=== PATIENT | male | born 1990 | race Caucasian/White ===

== ENCOUNTER 2024-09-16 13:37 | Outpatient (CLI) | payer MEDICARE, MEDICAID | END 2024-09-16 13:38 | disposition home or self-care (01) | LOC: SCSRAD 13:37 | PROVIDERS: ATTEND Student in an Organized Health Care Education/Training Program | DX: R05.9 Cough, unspecified (principal) | CPT/HCPCS: 71046 ==

== ENCOUNTER 2025-06-17 11:43 | Outpatient (CLI) | payer MEDICARE, MEDICAID | END 2025-06-17 11:44 | disposition home or self-care (01) | LOC: SCSRAD 11:43 | PROVIDERS: ATTEND Nurse Practitioner Family | DX: S29.9XXA Unspecified injury of thorax, initial encounter (principal) | CPT/HCPCS: 71046 ==